=== PATIENT | male | born 1955 | race African-American/Black ===

== ENCOUNTER 2016-11-17 05:32 | Inpatient (IN) ==
[2016-11-08 10:53] LABS: Basophils % 0.3 % (0.0-0.8); Eosinophils # 0.3 10*3/uL (0.0-0.87); Eosinophils % 2.6 % (0.00-10.9); Hematocrit 47.1 VOL% (42.0-52.0); Hemoglobin 15.9 GM/DL (14.0-18.0); Immature Granulocytes % 0.2 %; Immature Granulocytes Absolute 0.02 #; Lymphocytes # 3.3 10*3/uL (1.4-4.0); Lymphocytes % 32.2 % (21.2-54.2); Mean Corpuscular HGB Conc 33.8 GM/DL (32-36); Mean Corpuscular Hemoglobin 32 PG (27-34); Mean Corpuscular Volume 93.8 FL (87-102); Mean Platelet Volume 9.6 FL (9.6-12.0); Monocytes # 0.7 10*3/uL (0.11-0.8); Monocytes % 6.4 % (1.7-12.7); Neutrophils % 58.3 % (38.7-73.9); Platelet Count 194 T/CUMM (130-400); Red Blood Count 5.02 MC/CUMM (3.8-5.5); White Blood Count 10.3 T/CUMM (4-12)
[2016-11-08 11:00] LABS: Apearance,Urine Clear (Clear); Bilirubin,Urine Negative (Negative); Blood, Urine Trace mg/dL (Negative); Glucose,Urine (UA) Negative (Negative); Ketones,Urine Negative (Negative); Mucus,Urine Occasional /LPF (Occasional); Nitrite,Urine Negative (Negative); Protein,Urine Negative; RBC,Urine 8 /HPF (0-4); Urine Color Yellow (Yellow); Urine Urobilinogen 0.2 EU/DL (0.2-1.0); WBC,Urine <1 /HPF (0-6)
[2016-11-08 11:19] LABS: Calcium 9.6 MG/DL (8.5-10.1); Osmolality,Calculated 283.1 MOS/KG (273-304); Potassium 4.3 MMOL/L (3.5-5.1)
--- NOTE | 2016-11-08 11:31 | EKG Report ---
Stationary ECG Study [facility] Test Date: 11/08/2016 11:31:04 AM Pat Name: ELPIDIO HESS Department: Room: Gender: M Educational Resource Coordinator: FRANCY 11/17/16 OSCAR : 1955 Requested by: Nick Granda Order Number: [id number] Reading MD: DIANE WHATLEY Intervals Holden Rate: 86 P: 72 CA: 189 QRS: 58 QRSD: 89 T: 61 QT: 367 QTc: 411 Interpretive Statements SINUS RHYTHM at 86 BPM WNL Electronically Signed On 11-08-16 13:27:29 CDT by DIANE WHATLEY [email or web address]
[2016-11-17] MEDS ORDERED: ALVIMOPAN 12 MG CAPSULE ONE (05:58)
[2016-11-17] MEDS ORDERED: SODIUM CHLORIDE 0.9% 100 ML IV ONE (05:58)
[2016-11-17] MEDS ORDERED: cefTRIAXone 1,000 MG VIAL ONE (05:58)
[2016-11-17] MEDS ORDERED: SODIUM PHOSPHATE ENEMA 133 ML BOTTLE RECTAL ONE ×2 (05:58→06:00)
[2016-11-17] MEDS ORDERED: ALVIMOPAN 12 MG CAPSULE PO ONE (06:00)
[2016-11-17] MEDS ORDERED: FAMOTIDINE 20 MG TABLET PO ONE (06:00)
[2016-11-17] MEDS ORDERED: cefTRIAXone 1,000 MG in SODIUM CHLORIDE 0.9% 100 ML IV ONE (06:00)
[2016-11-17] MEDS ORDERED: LORazepam 1 MG TABLET PO ONE (06:00)
[2016-11-17] MEDS ORDERED: FAMOTIDINE 20 MG TABLET ONE (06:31)
[2016-11-17] MEDS ORDERED: LORazepam 1 MG TABLET ONE (06:31)
[2016-11-17] MEDS: LACTATED RINGERS 1,000 ML IV SCH (06:40)
--- NOTE | 2016-11-17 07:03 | History and Physical Update ---
History and Physical Update - History and Physical H&P was reviewed, the patient examined and there: are no changes in the patients condition since last H&P was completed.
[2016-11-17] MEDS ORDERED: ONDANSETRON 4 MG/2 ML VIAL ONE ×2 (07:14→12:15)
[2016-11-17] MEDS ORDERED: PHENYLEPHRINE 1 MG/10 ML SYRINGE IV ONE (07:14)
[2016-11-17] MEDS ORDERED: LIDOCAINE 2% 5 ML VIAL ONE (07:14)
[2016-11-17] MEDS ORDERED: PROPOFOL 200 MG/20 ML VIAL IV ONE (07:14)
[2016-11-17] MEDS ORDERED: ROCURONIUM 100 MG/10 ML VIAL IV ONE (07:14)
[2016-11-17 08:13] LABS: Apearance,Urine CLEAR (Clear); Bilirubin,Urine Negative (Negative); Blood, Urine Moderate mg/dL (Negative); Glucose,Urine (UA) Negative (Negative); Ketones,Urine Negative (Negative); Mucus,Urine Occasional /LPF (Occasional); Nitrite,Urine Negative (Negative); Protein,Urine Negative; RBC,Urine 13 /HPF (0-4); Sperm,Urine Occasional /HPF (Negative); Squamous Epithelial Cell,Urine Occasional /HPF (0-10); Urine Color Yellow (Yellow); Urine Specific Gravity 1.016 (1.001-1.035); Urine Urobilinogen < 2.0 EU/DL (0.2-1.0); WBC,Urine <1 /HPF (0-6)
[2016-11-17] MEDS ORDERED: ONDANSETRON 4 MG/2 ML VIAL IV PRN ×2 (11:10→11:50)
[2016-11-17] MEDS ORDERED: HYDROmorphone PCA 30 MG/30 ML SYRINGE IV SCH (11:30)
--- NOTE | 2016-11-17 11:30 | Anesthesia ---
Anesthesia Post OP - Post Ansesthetic Evaluation Patient seen in post op: Yes Resp: within normal limits CV: within normal limits Mental: within normal limits Temp: within normal limits Vqll-Xa-Ycvmalmhd: within normal limits Nausea and Vomiting: within normal limits Pain: within normal limits
--- NOTE | 2016-11-17 11:31 | Operative Note ---
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 Is elected to have a radical prostatectomy. He is admitted for robotic assisted laparoscopic radical prostatectomy. This procedure was explained at length and in detail. Risks, complications, outcomes , sequelae, prognosis and alternative therapy was thoroughly discussed. Patient understood this and agreed to proceed. Patient brought to the operative suite placed table in supine position on the securing pad is given a general endotracheal anesthetic and then secured to the table for radical prostatectomy. He is placed in low stirrups. He is then prepared and draped in usual sterile manner. Patient is placed in Trendelenburg in the legs and lower. Formal timeout was performed. Small incision great above the umbilicus. Blunt dissection was done down to the fascia. A Veress needle was then used to dunn the abdominal wall into the peritoneal cavity. Confirmation was obtained with to click and saline drop test. Pneumoperitoneum was obtained with insufflation of carbon dioxide. After 3 L the Veress needle was removed. 8 mm trocar was then placed. The camera was then inserted and the intra-abdominal contents are inspected. There is no bowel injury or vascular injury from the trocar. Under direct vision #1 #3 number forms are then placed. Assistance port placed between #1 and #2 about 4 inches above and in between them. The robot was then docked. I broke scrub and went to the console. [place] bipolar forceps in the left hand and monopolar scissors in the right were used to begun the dissection. The posterior dissection initially. Incision anterior cul-de-sac was performed. There were a few adhesions laterally from the colon these had to be taken down to help with bowel retraction by gravity. Seminal vesicles and vas deferens were then dissected out. Care was taken using minimal cautery with the seminal vesicles as this was going to be a nerve sparing. A window was created in the fascia. Attention was then directed to creating the bladder flap. Medial to the internal ring and incision was created up lateral to the median umbilical ligaments. The median umbilical ligament on the right side was poorly defined. But the bladder flap was then created and the bladder was then dropped down into the pelvis. Dissection was continued with sharp and blunt dissection in the prevesical space. Dissection was continued down to the endopelvic fascia. This was incised on both sides and levator attachments were then incised to be removed. Dissection was continued up to the apex with the puboprostatics were identified. The superficial dorsal vein was then ligated and the puboprostatics were divided. #1 [address] was used to place between the dorsal vein and the urethra and this was then tied securely to ligate the dorsal vein. Attention was directed to the bladder neck. Junction between the prostate and bladder was identified. This was then dissected with cautery initially and then sharp dissection was continued down to the bladder neck with observing the longitudinal fibers. Bladder neck was entered the bladder was then drained. Roca was pulled back and then was elevated with the progress that was in the fourth arm. Posterior bladder neck was incised. Pedicles were taken down with Weck clips divided. This was done on both sides. The fourth arm was used to grab the posterior prostate lip and this was pulled up. Dissection was continued posteriorly to the seminal vesicles and vas deferens which were pulled up.. Status post excision. No remaining posterior lateral pedicles were taken down with clips and divided. Patient the neurovascular bundles were then dissected off. The lateral prostatic fascia was incised. There were a few bleeding veins in the left and coagulated. Neurovascular bundle was dissected all the way to the apex. Prostate was pulled up and the attachments were then divided with sharp and blunt dissection. Surprisingly there were a few blood vessels posteriorly that had to be cauterized with bipolar. Attention was directed at the apex. The dorsal vein was then divided and dissection was continued sharply to the urethra. Urethra was then incised anteriorly. Roca catheter was pulled back the posterior urethra was incised. The nerve was then swept laterally on both sides remaining attachments were sharply divided. This freed up the prostate and seminal vesicles. This was then placed in specimen bag and placed to the side. Pelvis was then irrigated and drained. Bilateral no dissection was done. The adventitia external iliac vein is entered swept down the obturator fossa. There is a very large obturator vein semi-dissection was minimal. For fear of entering this vein creating a lot of bleeding. The nerve was identified and kept in view at all times and not injured. Both nabila packages were then sent as a separate specimen. Attention was redirected to the pelvis. A Srinivasan stitch was then used to approximate the posterior urethral plate to the posterior bladder neck. 3 gabriel suture was then used to provide the urethrovesical anastomosis. Beginning to 6 o'clock position outside in and then running from the 5:00 to 1:00 and 7:00 to 11 o'clock position. A new 22 Chinese all silicone Roca was inserted and the catheter was irrigated and this was a watertight anastomosis. The anastomotic suture was tied securely. Pneumoperitoneum was dropped there was no significant bleeding. The robot was undocked and the patient was laying flat. I re-scrubbed came back to the field. The trochars were removed as well as the pneumoperitoneum was deflated. The wounds are irrigated and drained and the wounds were closed with skin clips. The assistance port trocar was removed and his wound was enlarged with a scalpel at the skin and then cautery at the muscles and the fascia. The specimen bag containing the prostate and seminal vesicles were removed. This wound was closed with a running 0 Monocryl on the fascia. This wound was irrigated and hemostasis checked and then this began on this wound was closed skin clips. Sterile dressings were placed on the wounds and the Roca catheter secured the upper thigh. Patient tolerates procedure well was awakened anesthesia and sent to the recovery room in stable condition all sponge , needle enhancement counts correct 2. Anesthesia: GETA Surgeon / Physician: Nick Granda Estimated blood loss: other (100cc) Specimens: other (Prostate and seminal vesicles, bilateral pelvic nodes) Condition: stable Disposition: PACU Results - Labs CBC & BMP: 11/08/16 10:44 11/08/16 10:44 Discharge Plan - Discharge Medications No Action hydroCHLOROthiazide [Hydrochlorothiazide] 25 mg PO DAILY - Follow Up or Referral - Forms/Instructions
[2016-11-17] MEDS ORDERED: LACTATED RINGERS 2,000 ML IV ONE (11:34)
[2016-11-17] MEDS ORDERED: SEVOFLURANE 1 UNIT/15 MINUTE INH ONE (11:34)
[2016-11-17] MEDS ORDERED: SODIUM CHLORIDE 0.9% 250 ML IV ONE (11:34)
[2016-11-17] MEDS ORDERED: ACETAMINOPHEN 1,000 MG/100 ML VIAL IV ONE (11:34)
[2016-11-17] MEDS ORDERED: MIDAZOLAM 2 MG/2 ML VIAL ONE (11:34)
[2016-11-17] MEDS ORDERED: HYDROmorphone 2 MG/1 ML VIAL IV PRN (11:50)
[2016-11-17] MEDS ORDERED: HYDROmorphone 2 MG/1 ML VIAL ONE (12:15)
--- NOTE | 2016-11-17 12:53 | Urology Progress Note ---
Urology - PN: Subj Interval history: Postoperative check. Patient is stable. Vital signs are stable Exam - Constitutional Vitals: Period Temp Pulse Resp BP Sys/Barber Pulse Ox Last 24 Hr 97.2 F-98.2 F 66-90 14-21 96-142/57-95 97-100 Results - Labs CBC & BMP: 11/08/16 10:44 11/08/16 10:44
[2016-11-17] MEDS: DEXTROSE 5% NACL 0.45% 1,000 ML IV SCH (14:06)
[2016-11-17] MEDS: ALVIMOPAN 12 MG CAPSULE PO SCH (21:44)
[2016-11-18] MEDS: DEXTROSE 5% NACL 0.45% 1,000 ML IV SCH ×2 (03:20→09:25)
[2016-11-18 06:57] LABS: Basophils % 0.2 % (0.0-0.8); Eosinophils # 0.1 10*3/uL (0.0-0.87); Hematocrit 37.6 VOL% (42.0-52.0); Hemoglobin 12.8 GM/DL (14.0-18.0); Immature Granulocytes % 0.3 %; Immature Granulocytes Absolute 0.03 #; Lymphocytes # 2.4 10*3/uL (1.4-4.0); Lymphocytes % 20.5 % (21.2-54.2); Mean Corpuscular Hemoglobin 32 PG (27-34); Mean Corpuscular Volume 94.2 FL (87-102); Mean Platelet Volume 9.9 FL (9.6-12.0); Monocytes % 8.4 % (1.7-12.7); Neutrophils # 8.3 10*3/uL (1.4-7.4); Neutrophils % 69.6 % (38.7-73.9); Platelet Count 154 T/CUMM (130-400); Red Blood Count 3.99 MC/CUMM (3.8-5.5); Red Cell Distribution Width 12.2 % (9.3-17.3); White Blood Count 11.9 T/CUMM (4-12)
[2016-11-18 07:30] LABS: Calcium 8.1 MG/DL (8.5-10.1); Osmolality,Calculated 286.8 MOS/KG (273-304); Potassium 3.6 MMOL/L (3.5-5.1)
[2016-11-18] MEDS: LACTATED RINGERS 1,000 ML IV SCH (08:19)
[2016-11-18] MEDS: ALVIMOPAN 12 MG CAPSULE PO SCH ×2 (09:25→20:37)
[2016-11-18] MEDS: hydroCHLOROthiazide 25 MG TABLET PO SCH (09:25)
[2016-11-18] MEDS ORDERED: MEPERIDINE 50 MG/1 ML VIAL IM PRN (10:30)
--- NOTE | 2016-11-18 10:39 | Urology Progress Note ---
Urology - PN: Subj Interval history: Postop day 1. Patient is doing well urine is clear H&H is down a little bit 12 and 37 creatinine did go up to 1.7. We will repeat that but that can be transient after radical prostatectomy robotically. He is doing well he is hungry we will feeding. We will begin ambulation and DC his IV. Should be able to go home tomorrow. We will make his appointments and write his prescriptions Exam - Constitutional Vitals: Period Temp Pulse Resp BP Sys/Barber Pulse Ox Last 24 Hr 97.2 F-99.6 F 73-90 14-21 96-137/49-95 93-100 Results - Labs CBC & BMP: 11/18/16 06:38 11/18/16 06:38 Specialty Discharge - Follow Up or Referrals Follow up with: Nick Granda MD [Physician] - 12/02/16 2:00 pm (Appointment with Pastora Brennan 11-26-16 at 9:30am for catheter removal. )
[2016-11-18] MEDS: SOLIFENACIN 5 MG TABLET PO SCH (11:10)
[2016-11-18] MEDS: oxyCODONE/ACETAMINOPHEN 5-325 MG TABLET PO PRN ×3 (11:11→20:37)
--- NOTE | 2016-11-18 15:17 | Pathology Report from [facility] ---
ACCESSION # : [id number] PATIENT NAME : Elpidio Gutierrez ORDERING DR : KAYLA KING MD CLINICAL HX: Prostate cancer POST-OP DX: Same SPECIMEN INFO: #1 Right obturator node #2 Left obturator node #3 Prostate GROSS DESCRIPTION: The specimen is received labeled with the patient's name Elpidio Gutierrez in 3 parts.The first labeled #1 is received fresh "R OBTURATOR NODE" is a fragment of hyperemic fatty tissue measuring 2.0 x 1.7 cm. Sectioned and submitted in cassette #1.#2 Is received fresh and labeled "L OBTURATOR NODE" is a 1.0 x 0.7 cm yellow red tissue fragment. Sectioned and submitted in cassette #2.#3 "PROSTATE" consists of a 35 gram prostate which measures 4.8 x 4.0 x 2.2 cm. Seminal vesicles measure 3.0 x 3.0 cm in aggregate. The serosa of the prostate is shaggy and red farmer with the right half inked black and the left half inked blue. The cut surfaces are pink farmer and somewhat nodular. Sections submitted 3 A-Apical margin, 3 B-Base margin, 3 C-Seminal vesicle margin, 3 D-G- Right apex to base, 3 H-K-Left apex to base. DIAGNOSIS FOR ELPIDIO GUTIERREZ: #1 #2 #3 PROSTATE, RADICAL PROSTATECTOMY (4.8 x 4.2 x 2.2 cm, 35 gm): TYPE: Adenocarcinoma of prostate, bilateral. GRADE: Primary Pattern Grade 3; Secondary Pattern Grade 4; Total Cabot Score 7. BHUPINDER GRADE GROUP: 2 (3+4=7). PERCENTAGE OF PATTERN 4 in BHUPINDER SCORE 3+4=7 CANCER: 20%. TUMOR QUANTITATION: Percentage of prostate involved by tumor 40; Dominant nodule =11 mm. MARGINS: Margins uninvolved by invasive carcinoma. EXTRAPROSTATIC EXTENSION: Not Identified. SEMINAL VESICLE INVASION: Not identified. URINARY BLADDER NECK INVASION: Not identified. TREATMENT EFFECT: Not identified. LYMPH-VASCULAR INVASION: Not identified. PERINEURAL INVASION: Present. LYMPH NODES: Four nodes present; all negative for malignancy (0/4). AJCC PATHOLOGIC STAGE: IIB ([id number]). SERVICE DATE: 11/17/2016 REPORT DATE: 11/18/2016 PATHOLOGIST: Roverto Mora
[2016-11-19] MEDS: oxyCODONE/ACETAMINOPHEN 5-325 MG TABLET PO PRN ×3 (01:22→12:23)
--- NOTE | 2016-11-19 07:44 | Urology Progress Note ---
Urology - PN: Subj Interval history: The patient is afebrile and doing well. He will be discharged today with the Roca catheter. He has his prescriptions and appointment Exam - Constitutional Vitals: Period Temp Pulse Resp BP Sys/Barber Pulse Ox Last 24 Hr 98.0 F-99.1 F 68-91 16-20 107-147/54-81 91-98 Results - Labs CBC & BMP: 11/18/16 06:38 11/19/16 05:39 Specialty Discharge - Follow Up or Referrals Follow up with: Nick Granda MD [Physician] - 12/02/16 2:00 pm (Appointment with Pastora Brennan 11-26-16 at 9:30am for catheter removal. )
[2016-11-19] MEDS: ALVIMOPAN 12 MG CAPSULE PO SCH (10:06)
[2016-11-19] MEDS: hydroCHLOROthiazide 25 MG TABLET PO SCH (10:06)
[2016-11-19] MEDS: SOLIFENACIN 5 MG TABLET PO SCH (10:06)
--- NOTE | 2016-11-19 12:23 | Discharge Summary ---
Hospital Course - Hospital Course Hospital Course: This 61-year-old black male was admitted to the hospital by Dr. Granda and had a robotic prostatectomy. His postoperative course was uneventful. He will be discharged with his Roca catheter. He was given his prescriptions and his follow-up appointment to have the Roca removed. Specialty Discharge - Follow Up or Referrals Follow up with: Nick Granda MD [Physician] - 12/02/16 2:00 pm (Appointment with Pastora Brennan 11-26-16 at 9:30am for catheter removal. ) Discharge Plan - Discharge Data Disposition: Swing Bed, Hos Based, [facility] Discharge Diet: advance to your usual diet Activity: increase activity as tolerated Weight Bearing at Discharge: partial weight bearing Driving: not until seen by doctor - Discharge Medications No Action hydroCHLOROthiazide [Hydrochlorothiazide] 25 mg PO DAILY - Follow Up or Referral Follow Up: Nick Granda MD [Physician] - 12/02/16 2:00 pm (Appointment with Pastora Brennan 11-26-16 at 9:30am for catheter removal. ) - Forms/Instructions Instructions: Solifenacin (By mouth), Roca Catheter Placement and Care (DC), Robot Assisted Laparoscopic Prostatectomy (DC), Urinary Leg Bag (GEN) Exam - Constitutional Vitals: Period Temp Pulse Resp BP Sys/Barber Pulse Ox Last 24 Hr 98.0 F-99.1 F 68-91 16-20 114-147/54-81 91-98 Discharge Results Labs on day of discharge: Labs from last 24 hours 11/19/16 05:39 Creatinine 1.60 H GFR Calculation 62 DS: Provider Date of admission: 11/17/16 11:10 Primary care physician: Gene España MD Attending physician on admission: Nick Granda MD Discharging clinician: Jacob Hull MD
[2016-11-19 13:02] VITALS: BP 109/60
== END 2016-11-19 14:05 | disposition home or self-care (01) | DRG 708 ==
LOC: N.OR 05:32 → N.SDSINP 05:32 → N.5E 13:44
PROVIDERS: ADMIT Urology; ATTEND Urology